=== PATIENT | female | born 1955 | race Hispanic/Latino ===

== ENCOUNTER → 2018-02-04 | Outpatient (CLI) | payer OTHER ==
[~2018-02-04] MED LIST: ASPIR 8181 MG PO; ATORVASTATIN CA20 MG PO; GLUCOPHAGE1000 MG PO; LANTUS100 UNITS/ SC; METOPROLOL SUCC25 MG PO; NOVOLOG100 UNIT/1 SQ; PRAVACHOL40 MG PO
--- NOTE | 2018-02-13 08:47 | Diagnostic Imaging Report ---
#[id number] - MGSCRBIL #BILATERAL DIGITAL SCREENING MAMMOGRAM WITH CAD: 02/04/2018 CLINICAL: Routine screening. Comparison is made to exams dated: 05/12/2016 mammogram and 02/16/2009 mammogram - [facility]. Current study contains 5 films. There are scattered fibroglandular elements in both breasts. Current study was also evaluated with a Computer Aided Detection (CAD) system. There are benign vascular calcifications and calcifications in both breasts. No significant masses, calcifications, or other findings are seen in either breast. There has been no significant interval change. IMPRESSION: BENIGN There is no mammographic evidence of malignancy. A 1 year screening mammogram is recommended. The patient will be notified by letter of the results. Dereck reyes/steve:02/12/2018 08:47:06 Process Developer: Ria ERIC(Ignacio)([place]), [facility] letter sent: Compared to Prior B9 Mammogram BI-RADS: 2 Benign
== END ==
LOC: MAMMO 14:36
PROVIDERS: ATTEND Internal Medicine
DX: Z12.31 Encounter for screening mammogram for malignant neoplasm of breast (principal)
CPT/HCPCS: 77067

== ENCOUNTER → 2019-01-23 | Outpatient (CLI) | payer OTHER | LOC: MAMMO 13:23 | PROVIDERS: ATTEND Internal Medicine | DX: Z12.31 Encounter for screening mammogram for malignant neoplasm of breast (principal) | CPT/HCPCS: 77067 ==

== ENCOUNTER → 2020-06-17 | Outpatient (CLI) | payer OTHER | LOC: MAMMO 14:11 | PROVIDERS: ATTEND Internal Medicine | DX: Z12.31 Encounter for screening mammogram for malignant neoplasm of breast (principal) | CPT/HCPCS: 77067 ==